=== PATIENT | male | born 1960 | race Caucasian/White ===

== ENCOUNTER 2016-11-12 09:56 | Emergency (ER) | payer OTHER ==
[2016-11-12 10:22] VITALS: BP 124/75; PULSE 55; RESP 18; TEMP 98.6; O2SAT 95
--- NOTE | 2016-11-12 11:08 | UCPHY ---
H & P Time Seen by Provider: 11/12/16 10:38 Patient Type: Established HPI/ROS: This patient presents with a chief complaint nonproductive cough which began 1 week ago. He had a similar cough at the end of September which resolved after several weeks only to reoccur occurred a week ago. Early on in the illness had a temperature as high as 101.6 degrees associated with chills, nasal congestion and intermittent ear pressure. The symptoms have improved or resolved currently. He says that his chest feels tight although he has not had pleuritic chest pain or shortness of breath. He saw his primary care physician 3 days ago and was given a Z-Erwin and this does not seem to be helping. REVIEW OF SYSTEMS: Constitutional: No fever currently, fatigue Eyes: No complaints ENT: No sore throat, intermittent ear pressure, nasal and sinus congestion Respiratory: Dry hacky cough, no shortness of breath Cardiac: Chest tightness Gastrointestinal: Not addressed Genitourinary: Not addressed Musculoskeletal: No myalgias currently Skin: No rash Neurological: Mild headache This patient does have a history of travel to [facility] in September and to [facility] in July. Smoking Status: Never smoked Physical Exam: GENERAL: Well-appearing, well-nourished and in no acute distress. He does cough frequently and the cough is a dry hacky type. HEAD: Atraumatic, normocephalic. EYES: sclera anicteric, conjunctiva are normal. ENT: TMs normal, nares congested, oropharynx clear without exudates. Moist mucous membranes. NECK: Normal range of motion, supple without lymphadenopathy or JVD. LUNGS: Breath sounds clear to auscultation bilaterally and equal. No wheezes rales or rhonchi. I was unable to hear wheezes even on forced expiration HEART: Regular rate and rhythm EXTREMITIES: Normal range of motion, no pitting or edema. No clubbing or cyanosis. NEUROLOGICAL: Cranial nerves II through XII grossly intact. Normal speech, normal gait. PSYCH: Normal mood, normal affect. SKIN: Warm, dry, normal turgor, no visible rashes or lesions. Constitutional: Initial Vital Signs Temperature (C) 37.0 C 11/12/16 10:14 Heart Rate 55 L 11/12/16 10:14 Respiratory Rate 18 11/12/16 10:14 Blood Pressure 124/75 H 11/12/16 10:14 O2 Sat (%) 95 11/12/16 10:14 O2 Delivery Mode Room Air Allergies/Adverse Reactions: No Known Allergies Allergy (Verified 11/12/16 10:14) Home Medications: Medication Instructions Recorded NK [No Known Home Meds] 11/12/16 Medical Decision Making Differential Diagnosis: I believe that this patient has a viral syndrome and that antibiotics knee not be continued nor adjusted. The fever of 101.6 raises the possibility of influenza although he did not have myalgias of time. Given the duration of the illness I do not feel that it is indicated to do testing for influenza. Departure - Departure Disposition: Home, Routine, Self-Care Clinical Impression: Acute bronchitis Qualifiers: Bronchitis organism: unspecified organism Qualifier Code: (J20.9) Acute bronchitis, unspecified Condition: Good Instructions: Acute Bronchitis (ED) Additional Instructions: If this cough persists more than 10 days you should be re-evaluated. Cause for concern would be return of the fever, increasing shortness of breath or sharp chest pain. Referrals: Yo Calloway MD [Primary Care Provider] - As per Instructions - PQRS PQRS Measurement: Not applicable
== END 2016-11-12 11:15 | disposition home or self-care (01) ==
LOC: CED 09:56
DX: J20.9 Acute bronchitis, unspecified (principal)
CPT/HCPCS: 99213-PO; G0463-PO